=== PATIENT | male | born 2000 | race Caucasian/White ===

== ENCOUNTER 2023-12-22 08:03 | Emergency (ER) | payer BC, OTHER ==
[2023-12-22] MEDS: Lidocaine 1% 5 ML VIAL INJECT ONE (08:32)
[2023-12-22] MEDS: Bacitracin/Neomycin/Polymyxin B Oint 0.9 GM U/D Packet TOP ONE (08:40)
[2023-12-22] MEDS: Diphtheria,Pertussis(Acell),Tetanus Vaccine 0.5 ML Syringe IM ONE (08:43)
== END 2023-12-22 08:50 | disposition home or self-care (01) ==
LOC: KA.ED 08:03
DX: S61.216A Laceration without foreign body of right little finger without damage to nail, initial encounter (principal); Z02.6 Encounter for examination for insurance purposes; Z23 Encounter for immunization; W26.8XXA Contact with other sharp object(s), not elsewhere classified, initial encounter; Y93.89 Activity, other specified; Y99.0 Civilian activity done for income or pay
CPT/HCPCS: 12001; 90471; 90715; 99282-25; J3490